=== PATIENT | female | born 1990 | race African-American/Black ===

== ENCOUNTER 2018-05-01 20:23 | Emergency (ER) | payer BC | END 2018-05-01 21:44 | disposition left against medical advice (07) | LOC: ER 20:23 | DX: Z53.21 Procedure and treatment not carried out due to patient leaving prior to being seen by health care provider (principal) ==

== ENCOUNTER 2018-05-02 07:14 | Emergency (ER) | payer BC ==
[~2018-05-02] VITALS: Ht 165.1 cm; Wt 61.0 kg
[2018-05-02] MEDS ORDERED: IBUPROFEN 600MG TABLET PO ONE (10:30)
[2018-05-02 12:19] VITALS: BP 120/62
== END 2018-05-02 12:22 | disposition home or self-care (01) ==
LOC: ER 07:14
DX: M25.561 Pain in right knee (principal); M25.531 Pain in right wrist; J45.909 Unspecified asthma, uncomplicated; Z98.890 Other specified postprocedural states; W01.0XXA Fall on same level from slipping, tripping and stumbling without subsequent striking against object, initial encounter; Y93.89 Activity, other specified; Y92.89 Other specified places as the place of occurrence of the external cause; Y99.8 Other external cause status
CPT/HCPCS: 73110; 73562; 81025; 99283